=== PATIENT | female | born 1995 | race Caucasian/White ===

== ENCOUNTER → 2019-09-04 13:26 | Outpatient (CLI) | payer SELFPAY ==
[~2019-09-04 13:26] MED LIST: HYDROCODON-ACE1 EA10 PO; VALTREX1000 MG PO; [UNRECOGNIZED DRUG - OTHER] PO
[2019-09-06 12:50] VITALS: BMI 17.2
== END | disposition home or self-care (01) ==
LOC: D.LABREF 13:26
PROVIDERS: ATTEND Surgery
DX: Z11.59 Encounter for screening for other viral diseases (principal)

== ENCOUNTER 2019-09-06 06:22 | Day surgery (SDC) | payer BC ==
[~2019-09-06] VITALS: Ht 167.6 cm; Wt 48.6 kg
[2019-09-06] VITALS (15 sets, daily range): BP systolic 97–121; BP diastolic 62–83; Ht 167.6 cm; Wt 48.6 kg
--- NOTE | ~2019-09-06 | OP ---
PATIENT NAME: SERA BLAS MEDICAL RECORD: [id number] :96 LOCATION:[facility] D.[id number] ADMISSION DATE: SURGEON: RYAN DANG MD DATE OF OPERATION: 09/06/2019 PREOPERATIVE DIAGNOSIS: Right thyroid nodule. POSTOPERATIVE DIAGNOSIS: Right thyroid follicular adenoma. PROCEDURE: 1. Right thyroid lobectomy. 2. Excision middle neck mass. SURGEON: Ryan Dang MD REPORT OF PROCEDURE: The patient's neck was prepped and draped in sterile fashion. A transverse incision was made 2 fingerbreadths above the patient's sternal notch. Electrocautery was used to dissect through the subcutaneous tissues and platysma. Once we encountered the strap musculature, then the median rhaphe was opened up using electrocautery. We then elevated the right strap musculature and was able to visualize the patient's right thyroid gland. Using a peanut, we peeled off some of the adherent tissue over the anterior aspect of the thyroid. We encountered the inferior aspect of the thyroid first. The inferior pole vessels were ligated with 3-0 silk ties. We went laterally and we were able to find the lateral pole vessels, tied these off with 3-0 silk ties. As we went superiorly, we were able to find the superior pole vessels and this was transected with interrupted 3-0 silk ties. We began rolling the thyroid gland medially and taking down any attachments or vessels that were present using 3-0 silk ties. As we rolled this thing over, we were able to finally freed up from the underlying tissue. The recurrent laryngeal nerve was never visualized during the procedure. We eventually transected the thyroid gland on the isthmus using electrocautery and sent this portion of the thyroid gland off for frozen specimen. Report showed that this was a follicular adenoma with no sign of malignancy. We inspected the remainder of the neck and did not see any evidence of any active bleeding. There was a firm nodule present on the tracheal cartilage. It appeared to be an enlarged lymph node. I went ahead and excised this lymph node and sent it off for permanent specimen. I did not find any other lesions or masses present in the right side of the patient's neck. We then filled up the right neck with thrombin soaked Gelfoam. The middle strap muscles were reapproximated with interrupted 2-0 Vicryl. The platysma was reapproximated with interrupted 3-0 Vicryl and the skin was closed with running subcutaneous 5-0 Monocryl. A 6 mL of 1% lidocaine with epinephrine was infused into the surrounding tissues and the wound was dressed appropriately. COMPLICATIONS: None. CONDITION: Stable. ANESTHESIA: General endotracheal and local. BLOOD LOSS: Minimal. TRANSINT:[id number] Voice Confirmation ID: [id number] DOCUMENT ID: [id number] OPERATIVE REPORT [id number] SERA BLAS CHRISTIAN MD CC: ANNEL DENNIS DO [id number] DICTATION DATE: 09/06/19 1111 CLASSROOM PARAPROFESSIONAL: 09/06/19 1815 [facility] [address] [id number]
[~2019-09-06 06:22] MED LIST changes: -HYDROCODON-ACE1 EA10 PO
[2019-09-06 06:36] LABS: BASOPHILS 0.4 % (0-2); EOSINOPHILS 1.4 % (0-7); HEMATOCRIT 42.7 % (36.0-48.0); HEMOGLOBIN 13.9 g/dL (12-16); IMMATURE GRANULOCYTES 0.1 % (0-5); LYMPHOCYTES 47.3 % (15-50); MCH 29.1 pg (26.0-34.0); MCHC 32.6 g/dL (31.0-37.0); MCV 89.3 fL (80.0-100.0); MEAN PLATELET VOLUME 8.8 fL (7.4-10.4); NEUTROPHILS 41.8 % (40-80); PLATELET COUNT 275 10x3/uL (130-400); RBC 4.78 10x6/uL (4.00-5.40); RDW 13.1 % (11.5-14.5); WBC 7.7 10x3/uL (4.8-10.8)
[2019-09-06 06:53] LABS: ANION GAP 12.2 mmol/L (8-16); CALCIUM 9.4 mg/dL (8.5-10.1); CARBON DIOXIDE 26.7 mmol/L (21.0-32.0); POTASSIUM - SERUM 3.9 mmol/L (3.5-5.1)
[2019-09-06 07:42] LABS: HCG URINE NEGATIVE (NEGATIVE)
--- NOTE | 2019-09-06 12:31 | NUR ---
1205 ARRIVED FROM PACU WITH EILEEN BOURGEOIS RN FROM PACU STAFF VIA BED WITH COMPLICATIONS. ASSESSMENT COMPLETE INITIATED POSTOP FREQUENT VITAL SIGNS PATIENTS MOTHER ARRIVED IN ROOM.
[2019-09-06] MEDS ORDERED: HYDROCODON-ACE1 EA10 PO (13:49)
--- NOTE | 2019-09-06 16:57 | NUR ---
1230 PATIENTS MOTHER AT BEDSIDE UPDATE PROVIDED TO PATIENT SHE BECAME MORE ALERT PAIN 03/29 WHEN SWALLOWING SALIVA. FREQUENT VITAL SIGNS ONGOING. DRESSING TO THROAT AREA CDI
--- NOTE | 2019-09-06 16:59 | NUR ---
1330 FALLING IN AND OUT OF SLEEP NO COMPLAINTS VOICED
--- NOTE | 2019-09-06 17:00 | NUR ---
1349 ICE CHIPS PROVIDED DENIES NAUSEA
--- NOTE | 2019-09-06 17:02 | NUR ---
1425 RESTING QUUIETLY WITH EYES CLOSED PTS MOTHER NOT IN ROOM AT THIS TIME
--- NOTE | 2019-09-06 17:41 | NUR ---
[address]ACK [address] PL[address] ON INCISION AREA
--- NOTE | 2019-09-06 17:42 | NUR ---
1736 MOTHER AT BEDSIDE REGULAR DIET TRAY SERVED URI WELL. DENIES NAUSEA
== END 2019-09-06 18:37 | disposition home or self-care (01) ==
LOC: D.OPS 06:22 → D.ICU 11:52 → D.OPS 18:37
PROVIDERS: ATTEND Surgery
DX: D34 Benign neoplasm of thyroid gland (principal); R59.0 Localized enlarged lymph nodes